=== PATIENT | male | born 1960 | race American Indian/Alaskan Native ===

== ENCOUNTER 2017-07-18 05:19 | Inpatient (IN) | payer OTHER ==
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
[2017-07-18] MEDS ORDERED: ROPIVACAINE 0.2% 80 MG, EPINEPHrine 0.2 MG, KETOROLAC TROMETHAMINE 30 MG in BAG 0 ML IU ONE (06:00)
[2017-07-18] MEDS ORDERED: TRANEXAMIC ACID 1,360 MG in NS 100 ML IV ONE (06:00)
[2017-07-18] MEDS ORDERED: POVIDONE-IODINE 20 ML in SODIUM CL IRRIG SOLUTION 500 ML IRR ONE (06:00)
[2017-07-18] MEDS ORDERED: FAMOTIDINE 20 MG TAB PO ONE (08:08)
[2017-07-18] MEDS ORDERED: ceFAZolin 2 GM/DEXTROSE 100 ML IV ONE (08:08)
[2017-07-18] MEDS ORDERED: DEXAMETHASONE 4 MG/ML VIAL IVP ONE (08:08)
[2017-07-18] MEDS ORDERED: ACETAMINOPHEN 325 MG TAB PO ONE (08:08)
[2017-07-18] MEDS ORDERED: LR 1,000 ML IV ONE (08:09)
[2017-07-18] MEDS ORDERED: LIDOCAINE 1% 2 ML INJ ID PRN (08:09)
[2017-07-18] MEDS ORDERED: ceFAZolin 1 GM/5 ML SYR ONE (08:53)
--- NOTE | 2017-07-18 09:35 | PDHPUP ---
History & Physical Update H&P update statement: This history and physical update is based on an assessment of the patient which was completed after admission or registration (within 24 hours), but prior to the surgery/procedure. H&P update: H&P reviewed & patient examined, no change in patient's condition since H&P completed
[2017-07-18] MEDS ORDERED: MIDAZOLAM 2 MG/2 ML VIAL IVP ONE (10:02)
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
[2017-07-18] MEDS ORDERED: MIDAZOLAM 2 MG/2 ML VIAL ONE (10:03)
[2017-07-18] MEDS ORDERED: PROPOFOL/EMULSION 500 MG/50 ML BOTTLE IV ONE (10:07)
[2017-07-18] MEDS ORDERED: fentaNYL 100 MCG/2 ML INJ IVP PRN (10:57)
[2017-07-18] MEDS ORDERED: ONDANSETRON 4 MG/2 ML VIAL IVP PRN ×2 (10:57→11:58)
[2017-07-18] MEDS ORDERED: OXYCODONE/APAP 5/325 TAB PO PRN (10:57)
[2017-07-18] MEDS ORDERED: NALOXONE HCL 0.4 MG/ML INJ IVP PRN (10:57)
[2017-07-18] MEDS ORDERED: ACETAMINOPHEN 500 MG TAB PO PRN (10:57)
[2017-07-18] MEDS ORDERED: epHEDrine SULFATE 10 MG/ML SYR ONE (11:03)
[2017-07-18] MEDS ORDERED: PROPOFOL 200 MG/20 ML VIAL ONE (11:43)
[2017-07-18] MEDS ORDERED: hydrOXYzine HCL 25 MG TAB PO PRN (11:55)
[2017-07-18] MEDS ORDERED: traMADol 50 MG TAB PO PRN (11:58)
[2017-07-18] MEDS ORDERED: PROMETHAZINE HCL 25 MG SUPPR PR PRN (11:58)
[2017-07-18] MEDS ORDERED: KETOROLAC 30 MG/1 ML SDV IVP PRN (11:58)
[2017-07-18] MEDS ORDERED: PHARMACY PAIN CONSULT 1 EA MISC PRN (11:58)
[2017-07-18] MEDS ORDERED: BISACODYL 10 MG SUPP PR PRN (11:58)
[2017-07-18] MEDS ORDERED: diphenhydrAMINE 25 MG CAP PO PRN (11:58)
[2017-07-18] MEDS ORDERED: PROMETHAZINE HCL 25 MG/ML INJ IVP PRN (11:58)
[2017-07-18] MEDS ORDERED: ONDANSETRON DISINTEGRATING 4 MG TAB PO PRN (11:58)
[2017-07-18] MEDS ORDERED: POLYETHYLENE GLYCOL 3350 17 GM PKT PO PRN (11:58)
[2017-07-18] MEDS ORDERED: MAGNESIUM HYDROXIDE 30 ML UDCUP PO PRN (11:58)
[2017-07-18] MEDS ORDERED: TEMAZEPAM 15 MG CAP PO PRN (11:58)
[2017-07-18] MEDS ORDERED: LACTULOSE 20 GM/30 ML UDCUP PO PRN (11:58)
[2017-07-18] MEDS ORDERED: CYCLOBENZAPRINE 10 MG TAB PO PRN (11:58)
[2017-07-18] MEDS ORDERED: DIPHENOXYLATE/ATROPINE LOMOTIL 1 TAB PO PRN (11:58)
[2017-07-18] MEDS ORDERED: METOCLOPRAMIDE 10 MG/2 ML VIAL IVP PRN (11:58)
[2017-07-18] MEDS ORDERED: LR 1,000 ML IV SCH (12:00)
--- NOTE | 2017-07-18 12:02 | POSTOPPROG ---
Post Op Note Date of Operation: 07/18/17 Surgeon: Andrea Brown Manpower Development Specialist: Huan Martinez/Eugenio Oakes Anesthesiologist: Antonio Ortiz Anesthesia: IV Sedation, Spinal Post-op Diagnosis: Right hip severe degenerative arthritis. Procedure: Right total hip arthroplasty. Inf/Abcess present in the surg proc area at time of surgery?: No EBL: 100-500
--- NOTE | 2017-07-18 13:17 | GOP ---
[f rep st] OPERATIVE REPORT DATE OF OPERATION: 07/18/2017 SURGEON: Andrea Brown MD SECURITY GUARD SUPERVISOR: Cb Martinez, PAC and Eugenio Oakes CFA. ANESTHESIA: Combination of Marcaine, spinal and IV sedation. ANESTHESIOLOGIST: Dr. Antonio Ortiz. PREOPERATIVE DIAGNOSIS: Right hip severe degenerative arthritis POSTOPERATIVE DIAGNOSIS: Right hip severe degenerative arthritis PROCEDURE PERFORMED: A right total hip arthroplasty, ceramic femoral head on highly cross-linked po lyethylene cup liner. FINDINGS: DESCRIPTION OF PROCEDURE: The patient was given 2 g of IV Ancef preoperatively within 60 minutes of surgery. He also received IV tranexamic acid at a dose of 20 mg/kg. He was placed on the operatin g room table and given spinal anesthesia with Marcaine by Dr. Ortiz. He was then placed supine and given IV sedation. A Casanova catheter was not used. He wore a ADITYA stocking and SCD on the nonoperati ve leg. He was rolled to the left lateral decubitus position. The position was secured with the pe gboard table attachment. An axillary roll was used, and all pressure points were carefully padded. I was careful to lock his pelvis in a rigid vertical position. His perineum was isolated with plas tic adhesive drapes. The right hip and right lower extremity were prepped with ChloraPrep. They we re draped free using sterile sheets, stockinette, and Ioban plastic drapes. The [employer] time-out was performed to verify the correct surgical side and site, a nd the correct patient identity. The [place] time-out was also performed. I made a 4-5 inch straight oblique posterolateral hip skin incision. Subcutaneous tissues were veronica ply divided, and hemostasis was obtained using electrocautery. The fascia qian was identified and s plit along the axis of its fibers. I only split the most proximal portion of his fascia qian. This was a modified direct superior approach. I then curved posteriorly and proximally, and split the f ascia of the gluteus vern, and bluntly split the muscle fibers in line with their orientation. T alex Charnley self-retaining retractor was inserted. His sciatic nerve was located, partially exposed , and protected throughout the procedure. The external rotators and the posterior hip capsule were divided as separate layers at the base of the femoral neck, tagged, and reflected posteriorly. A sm ooth 8-inch Steinmann pin was inserted vertically into the ilium, superior to the acetabulum. An 8- inch drill bit was inserted vertically into the greater trochanter and parallel to the first pin. T he distance between the two was measured for leg length reference. His femoral head was dislocated posteriorly. Severe degenerative changes were present on the femoral head. His femoral neck was os teotomized at the appropriate level and inclination. I was careful to preserve all the posterior capsule and most of the anterior capsule. The remnant o f his damaged labrum was excised. I prepared the femur first. This allowed me to overlay operator the amount of natural femoral neck anteversion . This, in turn, allowed me to later determine the correct amount of cup anteversion. He had appro ximately 10 degrees of natural femoral neck anteversion. The canal was opened laterally with a box chisel. I used power on the starter reamer. I then hand broached sequentially up to a size 5. I w as using a [place] Accolade II stem. I used a size 5 broach as a trial stem. I was careful to late ralize adequately. Appropriate retractors were inserted to expose the acetabulum. The acetabulum was reamed sequential ly up to 53 mm. I selected a 54 mm [place] Tritanium solid-backed hemispherical shell. This was ta pped securely into place in the proper degree of inclination and anteversion. I used the transverse acetabular ligament and other acetabular bony landmarks to help me properly orient the cup. I inse rted a screw-in metal dome hole plug. Large anterior and posterior inferior osteophytes were remove d with an osteotome and rongeur. I performed a series of trial reductions to determine length and stability. I concluded that the si ze 5 stem with a high offset neck and a 0 neck length, with a 36 mm head and a flush or 0-degree dolores er gave me the proper combination of appropriate length and good anterior and posterior stability. The flush or 0-degree Manny X3 highly cross-linked polyethylene liner was inserted and tapped secu rely into place. I selected the [place] Accolade II stem in a size 5 with high offset. This was in serted press-fit and was very tight. I did one final trial reduction and confirmed that the 0 neck length with a 36 mm head was the proper combination. The [place] Biolox Delta ceramic head with an outside diameter of 36 mm and a neck length of 0 mm was tapped securely onto the clean trunnion. Th e acetabulum was irrigated, cleaned, and the hip was reduced one final time. He had excellent anter ior and posterior stability and appropriate length. 40 mL of the joint anesthetic cocktail was injected into the capsule, the deep musculature, and the subcutaneous tissues around the skin edges. The joint was thoroughly irrigated one final time with a dilute Betadine solution. His sciatic nerve was reinspected and looked unharmed. The external rotators and the posterior hip capsule were repaired in separate layers with #2 FiberWi re sutures through drill holes in the greater trochanter. This provided a strong posterior capsular and external rotator repair. The fascia qian was closed first with two #2 [id number] FiberWir e sutures, followed by a running #2 barbed Ethicon Stratafix PDO suture. Subcutaneous tissues were closed with a running 0 barbed Ethicon Stratafix Monoderm suture. The skin was closed with a runnin g 3-0 barbed Ethicon Stratafix Monoderm subcuticular suture. The skin edges were reapproximated and sealed with Dermabond glue. The wound was covered with a 9 cm x 25 cm [place] surgical dressing . A long-leg ADITYA stocking and SCD were applied to his right lower extremity. He wore a stocking and S CD on the opposite leg during the procedure. An abduction pillow was placed between his knees. He was awakened from anesthesia, and rolled to the supine position [facility] He was take n to PACU in satisfactory condition. There were no recognized intraoperative complications. The estimated blood loss was about 300 mL. The sponge and needle counts were correct on 2 occasions . I used a Manny Tritanium hemispherical solid-backed acetabular shell with an outside diameter of 5 4 mm. The liner was a [place] X3 0-degree highly cross-linked liner with an inside diameter of 36 m m. The femoral component was a press-fit [place] Accolade II high offset stem in size 5. The femor al head was a [place] Biolox Delta ceramic head with a 0 neck length and a 36 mm outside diameter. Huan Martinez and Eugenio Oakes acted as surgical assistants. Their assistance was a medical feli cameron for safe completion of the procedure. /[id number]/MODL
[2017-07-18] MEDS ORDERED: fentaNYL 100 MCG/2 ML INJ ONE (14:26)
[2017-07-18] MEDS: ACETAMINOPHEN 325 MG TAB PO SCH ×3 (17:48→22:43)
[2017-07-18] MEDS: ceFAZolin 2 GM/DEXTROSE 100 ML IV SCH (17:49)
[2017-07-18] MEDS: METHADONE HCL 10 MG TAB PO SCH ×2 (17:49→22:43)
--- NOTE | 2017-07-18 18:27 | POSTANESTH ---
Post Anesthetic Evaluation Cardiovascular Status: Normal, Stable, Similar to Pre-Op Cond Respiratory Status: Normal, Stable, Similar to Pre-op Cond. Level of Consciousness/Mental Status: Can Participate in Eval, Alert and Oriented Pain Control: Adequate, Prn Tx Ordered Nausea/Vomiting Control: Adequate, Prn Tx Ordered Complications Possibly Related to Anesthesia: None Noted
[2017-07-18] MEDS: ASPIRIN 325 MG TAB PO SCH (20:44)
[2017-07-18] MEDS: SENNOSIDES/DOCUSATE SODIUM TAB PO SCH (20:44)
[2017-07-18] MEDS: TAMSULOSIN HCL 0.4 MG CAP PO SCH (20:44)
[2017-07-18] MEDS: FAMOTIDINE 20 MG TAB PO SCH (20:44)
[2017-07-18] MEDS: oxyCODONE IR 5 MG TAB PO PRN (20:49)
[2017-07-18] MEDS ORDERED: traZODone 100 MG TAB PO SCH (21:00)
[2017-07-19] MEDS: ceFAZolin 2 GM/DEXTROSE 100 ML IV SCH (02:30)
[2017-07-19] MEDS: oxyCODONE IR 5 MG TAB PO PRN ×2 (02:35→12:44)
[2017-07-19 05:20] LABS: HEMATOCRIT 35.5 % (40.0-51.0); HEMOGLOBIN 12.2 g/dL (13.7-17.5)
[2017-07-19] MEDS: ACETAMINOPHEN 325 MG TAB PO SCH ×2 (05:39→11:24)
[2017-07-19] MEDS: ASPIRIN 325 MG TAB PO SCH (08:02)
[2017-07-19] MEDS: FAMOTIDINE 20 MG TAB PO SCH (08:02)
[2017-07-19] MEDS: TAMSULOSIN HCL 0.4 MG CAP PO SCH (08:02)
[2017-07-19] MEDS: METHADONE HCL 10 MG TAB PO SCH (08:02)
[2017-07-19] MEDS: SENNOSIDES/DOCUSATE SODIUM TAB PO SCH (08:03)
[2017-07-19] MEDS ORDERED: FERROUS SULFATE 140 MG TAB.ER PO SCH (09:00)
[2017-07-19 12:09] VITALS: BP 102/84; PULSE 108; RESP 18; TEMP 98; O2SAT 95
--- NOTE | 2017-07-19 12:28 | SOAPPROG ---
SOAP Progress Note Assessment/Plan: Assessment: Afebrile. Awake and alert. Excellent progress with physical therapy. Sciatic nerve intact Postop films look good. H&H is good. Plan: Discharge today. 07/19/17 12:26 Objective: Vital Signs Temp Pulse Resp BP Pulse Ox 36.6 C 108 H 18 102/84 H 95 07/19/17 12:00 07/19/17 12:00 07/19/17 12:00 07/19/17 12:00 07/19/17 12:00 Laboratory Results 07/19/17 04:44 07/18/17 07/19/17 07/20/17 05:59 05:59 05:59 Intake Total 3084 Output Total 3000 Balance 84 ICD10 Worksheet Patient Problems: Problems Problem Status Onset Osteoarthritis of right hip Acute Abscess of liver Active
--- NOTE | 2017-07-19 13:22 | GDS ---
[f rep st] DISCHARGE SUMMARY ADMISSION DIAGNOSIS: Right hip severe degenerative arthritis. DISCHARGE DIAGNOSIS: Right hip severe degenerative arthritis. OPERATION PERFORMED: 07/18/2017, a right total hip arthroplasty. POSTOPERATIVE COMPLICATIONS: None. CONDITION ON DISCHARGE: Improved. DESCRIPTION OF HOSPITAL COURSE: The patient was admitted to the hospital on the morning of surgery. His admission CBC was normal. The same day, under a combination of Marcaine, spinal anesthesia, and IV sedation, he underwent a right total hip arthroplasty. Postoperatively, he was treated with mult imodal DVT prophylaxis, including aspirin. On the first postoperative day, his hemoglobin and hemato crit were 12.2 and 35.5. He was seen by Physical Therapy and made excellent progress with ambulation and stairs. By the time of discharge, he was afebrile, he was independent walking with a walker, an d his wound was dry. DISPOSITION: The patient is discharged to his home. He will continue aspirin 325 mg p.o. daily for 21 days. He has prescription for oxycodone and tramadol for pain control. He may progress to full w eightbearing as tolerated. Use ADITYA stockings for 1 week. I will see him back in the office on 08/07. If there are any problems, he is to call me at the office. /[id number]/MODL
--- NOTE | 2017-07-23 17:06 | ASDISCHSUM ---
Discharge Information Plan Status:Home with No Needs Medically Cleared to Leave: Discharge Date:07/19/2017 01:26 PM D/C Disposition:Home, Routine, Self-Care ADT D/C Disposition:Home, Routine, Self-Care Projected Discharge Date:07/19/2017 01:26 PM Transportation at D/C: Discharge Delay Reason: Follow-Up Date:07/19/2017 01:26 PM Discharge Slot: Final Diagnosis: Placement Information Patient Contact Information Contact Name:HENRIQUE Relationship:Sister Address: Home Phone: City: [facility] Phone: [facility]/Zip Code: Email: Financial Information Financial Class: Primary Plan Desc:MEDICARE INPATIENT Primary Plan Number:[id number] Secondary Plan Desc: Secondary Plan Number: Assessment Information [facility] CM Progress Note CM Note CM Note Notes: Late entry due to [employer] down time: 07/19/17 Pt had planned OA of hip, PT rec home vs. outpatient. Pt medically stable for d/c, no CM d/c needs identified. Date Signed: 07/20/2017 04:15 PM Electronically Signed By:Dana Fletcher Intervention Information
== END 2017-07-19 13:26 | disposition home or self-care (01) | DRG 470 ==
LOC: F3N 05:19
PROVIDERS: ADMIT Orthopaedic Surgery; ATTEND Orthopaedic Surgery
PROC: 0SR904Z Replacement of Right Hip Joint with Ceramic on Polyethylene Synthetic Substitute, Open Approach (ICD-10-PCS; principal; 2017-07-18 07:15)
DX: M16.11 Unilateral primary osteoarthritis, right hip (principal); G89.29 Other chronic pain; F43.10 Post-traumatic stress disorder, unspecified; Z79.891 Long term (current) use of opiate analgesic
CPT/HCPCS: 97161-GP; 97165-GO; G8978-GP-CI; G8979-GP-CI; G8980-GP-CI; G8987-GO-CJ; G8988-GO-CI; G8989-GO-CI; J0171; J0690; J1100; J1885; J2250; J2704; J2795; J3010